=== PATIENT | male | born 1960 | race Caucasian/White ===

== ENCOUNTER → 2017-11-26 17:00 | Outpatient (CLI) | payer OTHER, SELFPAY ==
--- NOTE | 2017-11-26 17:05 | DI.MRI.S_ITS ---
PROCEDURE: MR KNEE RT WO CON INDICATIONS: Right knee pain TECHNIQUE: Noncontrast sagittal PD fast spin echo and T2 fast spin echo with fat saturation, sagittal 3-D FLASH with fat saturation; coronal T1 spin echo and PD fast spin echo with fat saturation, and axial PD fast spin echo with fat saturation through the knee. COMPARISON: [facility], CR, XR KNEE ARTHRITIC SERIES RT, 11/01/2017, 14:00. Outside Film, CR, XR KNEE 3 VIEWS RIGHT, 10/15/2017, 16:56. FINDINGS: Image quality: Excellent. Menisci: The lateral meniscus demonstrates normal morphology and internal signal but the medial meniscus through its mid body and especially through the posterior horn shows extensive degenerative change and thinning. A displaced meniscal fragment is not found, but there likely is a horizontally oriented tear through the posterior horn of the medial meniscus in addition to the degeneration noted. The meniscal root ligaments appear intact. Cruciate ligaments: The anterior and posterior cruciate ligaments appear intact. Medial structures: The medial collateral ligament appears intact. The posterior oblique ligament, semimembranosus tendon insertions, oblique popliteal ligament, and meniscocapsular junction appear intact. Visualized portions of the pes anserinus tendons appear normal. No abnormal bursal fluid. Lateral structures: The lateral collateral ligament, long and short heads of the biceps femoris tendon appear intact but there is marrow edema beneath the insertion of the posterior cruciate ligament at the posterior tibia, chronic in appearance. The popliteus tendon appears normal; the popliteofibular ligament appears intact. The posterosuperior and anteroinferior popliteomeniscal fascicles appear intact. The arcuate and fabellofibular ligaments appear intact, on either side of the lateral inferior geniculate artery. Iliotibial band appears normal. Anterior structures: The quadriceps and patellar tendons appear intact. Patellar alignment is normal. No femoral trochlear dysplasia or ventral trochlear prominence. No edema in the infrapatellar fat pad. Bones and cartilage: No bone marrow contusions or fractures. The cartilage of the medial and lateral femorotibial compartments, as well as the patellofemoral compartment, appears reduced in thickness and this is present to a moderate degree at the medial compartment and a mild degree at the lateral compartment and patellofemoral joint. Joint space: There is a moderate excess of knee joint fluid without visualized intra-articular loose body. A 2.7 cm AP, 4.8 cm craniocaudad, and 1.4 cm transverse dimension Meza cyst is seen at the posterior medial knee, with cyst rupture at its inferior margin allowing extravasation of a small amount of synovial fluid into the intermuscular fascial plane posteriorly. Normal appearing synovial plicae are incidentally noted. IMPRESSION: 1. Extensive degeneration involves the midbody and posterior horn of the medial meniscus with what appears to be a horizontally oriented posterior horn medial meniscal tear superimposed. 2. Focal edema is present within the posterior tibial plateau and also beneath the medial tibial plateau more anteriorly consistent with an inflammatory component of the degenerative osteoarthritic change identified. Moderately severe osteoarthritis is seen at the medial compartment and mild at the lateral compartment and the patellofemoral joint. 3. 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 There is a small amount of extravasated synovial fluid tracking from the inferior margin of the Meza cyst immediately below into the intermuscular fascial plane indicating cyst rupture. 4. Moderate knee joint effusion, no intra-articular loose body found. Dictated by: Fab Carlton M.D. on 11/27/2017 at 14:27 Approved by: Fab Carlton M.D. on 11/27/2017 at 14:35
== END ==
PROVIDERS: Visit Provider Physician Assistant
DX: S83.241A Other tear of medial meniscus, current injury, right knee, initial encounter (principal); M25.561 Pain in right knee; M17.11 Unilateral primary osteoarthritis, right knee; M71.21 Synovial cyst of popliteal space [Baker], right knee; M25.461 Effusion, right knee
CPT/HCPCS: 73721